=== PATIENT | female | born 1965 | race Caucasian/White ===

== ENCOUNTER 2017-12-15 13:24 | Emergency (ER) | payer OTHER ==
[~2017-12-15] VITALS: Ht 157.5 cm; Wt 114.0 kg
[2017-12-15 13:49] VITALS: BP 153/99
[2017-12-15] MEDS ORDERED: KETOROLAC 30 MG/1 ML ONE (14:11)
[2017-12-15] MEDS ORDERED: KETOROLAC 30 MG/1 ML IM ONE (14:30)
== END 2017-12-15 15:02 | disposition home or self-care (01) ==
LOC: ED 14:56
DX: M25.562 Pain in left knee (principal); G89.29 Other chronic pain; F17.200 Nicotine dependence, unspecified, uncomplicated
CPT/HCPCS: 96372; 99283; J1885

== ENCOUNTER 2018-01-21 21:18 | Emergency (ER) | payer OTHER ==
[~2018-01-21] VITALS: Ht 157.5 cm; Wt 113.2 kg
[2018-01-21 21:25] VITALS: BP 177/104
[2018-01-21] MEDS ORDERED: IBUPROFEN 200 MG TABLET PO ONE (22:00)
[2018-01-21] MEDS ORDERED: LIDOCAINE 1%-EPI 1:100K, 20ML SQ ONE (22:00)
[2018-01-21] MEDS ORDERED: IBUPROFEN 600 MG TABLET ONE (22:09)
[2018-01-21] MEDS ORDERED: LIDOCAINE-MPF 1%, 2ML ONE (22:10)
[2018-01-21 22:34] LABS: BASOPHILS # (AUTO) 0.03 x10^3/uL (0-0.1); BASOPHILS % (AUTO) 0 % (0-1); EOSINOPHILS # (AUTO) 0.27 x10^3/uL (0-0.4); EOSINOPHILS % (AUTO) 3 % (1-7); LYMPHOCYTES # (AUTO) 0.99 x10^3/uL (1-3.4); LYMPHOCYTES % (AUTO) 9 % (22-44); MD NO; MEAN CORPUSCULAR HEMOGLOBIN 29.7 pg (27.0-34.8); MEAN CORPUSCULAR VOLUME 87.4 fL (80-100); MEAN PLATELET VOLUME 8.6 fL (7.4-10.4); MONOCYTES # (AUTO) 0.51 x10^3/uL (0.2-0.8); MONOCYTES % (AUTO) 5 % (2-9); NEUTROPHILS # (AUTO) 8.91 x10^3/uL (1.8-6.8); NEUTROPHILS % (AUTO) 83 % (42-75); PLATELET COUNT 344 x10^3/uL (130-400); RED BLOOD COUNT 5.08 x10^6/uL (3.82-5.3); RED CELL DISTRIBUTION WIDTH 13.3 % (9.6-15.2)
[2018-01-21 22:50] LABS: MICROSCOPIC INDICATED
[2018-01-21 22:55] LABS: CULTURE INDICATED? YES
[2018-01-21] MEDS ORDERED: LIDOCAINE 1%-EPI 1:100K, 30ML ONE (22:57)
[2018-01-21 22:58] LABS: CALCIUM 8.3 mg/dL (8.5-10.1); CREATININE 0.85 mg/dL (0.55-1.02)
[2018-01-21] MEDS ORDERED: LIDOCAINE 1%-EPI 1:100K, 30ML SQ ONE (23:00)
[2018-01-21 23:27] LABS: ALANINE AMINOTRANSFERASE 20 U/L (12-78); ALKALINE PHOSPHATASE 140 U/L (45-117); ANION GAP 10 mmol/L (5-15); BILIRUBIN,TOTAL 0.6 mg/dL (0.2-1.0); CHLORIDE 109 mmol/L (98-107); TOTAL PROTEIN 7.9 g/dL (6.4-8.2)
== END 2018-01-21 23:35 | disposition home or self-care (01) ==
LOC: ED 22:33
DX: L02.415 Cutaneous abscess of right lower limb (principal); L02.214 Cutaneous abscess of groin; F17.210 Nicotine dependence, cigarettes, uncomplicated
CPT/HCPCS: 10060; 36415; 80053; 81001; 85025; 87086; 99283

== ENCOUNTER 2019-09-17 12:14 | Emergency (ER) | payer OTHER ==
[~2019-09-17] VITALS: Ht 157.5 cm; Wt 110.6 kg
--- NOTE | 2019-09-17 12:20 | NUR ---
pt ambulated to room using cane. pt steady on feet.
--- NOTE | 2019-09-17 12:45 | NUR ---
REPORTS PAINFUL URINATION X2 DAYS. URINE SAMPLE COLLECTED. CALL LIGHT WITHIN REACH.
[2019-09-17] MEDS ORDERED: GABA300C PO (12:47)
[2019-09-17] MEDS ORDERED: PHENAZOPYRIDINE 200 MG TABLET ONE (12:50)
[2019-09-17 12:54] LABS: HCG UR SG 1.025 (1.003-1.030); MICROSCOPIC INDICATED
[2019-09-17] MEDS ORDERED: PHENAZOPYRIDINE 200 MG TABLET PO ONE (13:00)
[2019-09-17 13:52] VITALS: BP 141/84
== END 2019-09-17 13:59 ==
LOC: ED 13:15
DX: N30.01 Acute cystitis with hematuria (principal)
CPT/HCPCS: 81001; 81025; 87077; 87086; 87186; 99283

== ENCOUNTER 2020-03-08 14:01 | Emergency (ER) | payer OTHER ==
[~2020-03-08] VITALS: Ht 157.5 cm; Wt 109.0 kg
[~2020-03-08 14:01] MED LIST: GABA300C PO
[2020-03-08 14:03] VITALS: BP 110/64
--- NOTE | 2020-03-08 14:21 | NUR ---
pt from lobby to room 29
--- NOTE | 2020-03-08 14:29 | NUR ---
TASK RN: PT AMBULATED STEADILY TO ROOM FROM LOBBY. PT REPORTS INCREASED URINARY FREQUENCY AND PAIN W URINATION X TWO DAYS. DENIES FEVER/FLANK PAIN/HEMATURIA/N/V. UA COLLECTED AND SENT TO LAB
[2020-03-08] MEDS ORDERED: PHENAZOPYRIDINE 200 MG TABLET PO ONE (14:30)
[2020-03-08 14:46] LABS: MICROSCOPIC AUTO
[2020-03-08] MEDS ORDERED: CEFTRIAXONE 1,000 MG IM ONE (15:00)
[2020-03-08] MEDS ORDERED: PHENAZOPYRIDINE 200 MG TABLET ONE (15:34)
[2020-03-08] MEDS ORDERED: ONDANSETRON ODT 4 MG ONE (15:34)
[2020-03-08] MEDS ORDERED: CEFTRIAXONE 1,000 MG ONE (15:34)
[2020-03-08] MEDS ORDERED: ONDANSETRON ODT 4 MG PO ONE (16:00)
== END 2020-03-08 16:21 | disposition home or self-care (01) ==
LOC: ED 15:18
DX: N30.00 Acute cystitis without hematuria (principal); F17.200 Nicotine dependence, unspecified, uncomplicated; Z59.0 Homelessness
CPT/HCPCS: 81001; 87077; 87086; 96372; 99283; J0696; Q0162; 87186

== ENCOUNTER 2020-04-03 17:51 | Emergency (ER) | payer OTHER ==
[~2020-04-03] VITALS: Ht 157.5 cm; Wt 109.3 kg
--- NOTE | 2020-04-03 18:46 | NUR ---
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
--- NOTE | 2020-04-03 19:07 | NUR ---
PT AMBULATORY TO ROOM 38 W/ C/O FEVERS, CHILLS, BODY ACHES, N/V/D STARTED TODAY THIS AM. PT STATES SHE FELT FINE LAST NIGHT. PT STATES SHE IS EXTREMELY NERVOUS TO BE IN THE ED AT THIS TIME. HR REFLECTS IT. PIV INITIATED. PT RESTING ON GURNEY. NADN. MONITORS APPLIED.
[2020-04-03] MEDS ORDERED: ONDANSETRON 2MG/ML, 2ML IVPush ONE (19:30)
[2020-04-03] MEDS ORDERED: SODIUM CHLORIDE FLUSH 10ML SYR IVF ONE (19:30)
[2020-04-03] MEDS ORDERED: SODIUM CHLORIDE 0.9% 1,000 ML IV ONE (19:30)
[2020-04-03] MEDS ORDERED: SODIUM CHLORIDE 0.9% 1,000ML IVBOLUS ONE (19:30)
[2020-04-03] MEDS ORDERED: ONDANSETRON 2MG/ML, 2ML ONE (19:39)
[2020-04-03 19:41] LABS: BASOPHILS % (AUTO) 0 % (0-1); EOSINOPHILS % (AUTO) 2 % (1-7); LYMPHOCYTES % (AUTO) 5 % (22-44); MEAN CORPUSCULAR HEMOGLOBIN 30.9 pg (27.0-34.8); MEAN CORPUSCULAR HGB CONC 35.3 g/dL (32.4-35.8); MEAN PLATELET VOLUME 8.5 fL (7.4-10.4); MONOCYTES % (AUTO) 2 % (2-9); NEUTROPHILS % (AUTO) 91 % (42-75); PLATELET COUNT 305 x10^3/uL (130-400); RED BLOOD COUNT 5.56 x10^6/uL (3.82-5.3); RED CELL DISTRIBUTION WIDTH 12.8 % (9.6-15.2)
[2020-04-03 19:47] LABS: ALANINE AMINOTRANSFERASE 23 U/L (12-78); ALBUMIN 3.8 g/dL (3.4-5.0); ANION GAP 6 mmol/L (5-15); CALCIUM 9.2 mg/dL (8.5-10.1); CHLORIDE 109 mmol/L (98-107); CREATININE 0.95 mg/dL (0.55-1.02)
[2020-04-03 19:49] LABS: ALKALINE PHOSPHATASE 132 U/L (45-117); BILIRUBIN,TOTAL 0.6 mg/dL (0.2-1.0); TOTAL PROTEIN 8.1 g/dL (6.4-8.2)
--- NOTE | 2020-04-03 19:57 | NUR ---
PT AWARE OF NEED FOR STOOL SAMPLE. COMMODE AND HAT LEFT AT BEDSIDE. PT EDUCATED ON SAMPLE COLLECTION.
[2020-04-03 20:05] LABS: MD SCAN
[2020-04-03 20:06] LABS: MICROSCOPIC INDICATED
[2020-04-03 20:27] VITALS: BP 149/97
--- NOTE | 2020-04-03 20:27 | NUR ---
PTERP DR. VIRK NOTIFIED OF PT BP. ERP DR. VIRK AT BEDSIDE FOR RE-EVAL.
== END 2020-04-03 21:08 | disposition home or self-care (01) ==
LOC: ED 20:15
DX: K52.9 Noninfective gastroenteritis and colitis, unspecified (principal); R11.2 Nausea with vomiting, unspecified; M79.10 Myalgia, unspecified site; R50.9 Fever, unspecified; I10 Essential (primary) hypertension; R00.0 Tachycardia, unspecified
CPT/HCPCS: 36415; 80053; 81001; 83690; 85025; 87086; 93005; 96361; 96374; 99284; J2405; J7030; 96376